=== PATIENT | male | born 2000 | race Caucasian/White ===

== ENCOUNTER 2023-12-26 17:20 | Emergency (ER) | payer SELFPAY ==
[~2023-12-26] VITALS: Ht 177.8 cm; Wt 78.0 kg
[2023-12-26 17:26] VITALS: TEMP 98.2; O2SAT 100
[2023-12-26 17:45] VITALS: BP 135/83; PULSE 74; RESP 18
[2023-12-26] MEDS ORDERED: MORPHINE SULFATE 10 MG/ML CPJ IM ONE (17:45)
[2023-12-26] MEDS ORDERED: HYDR-4001 MT ×2 (20:39→21:51)
[2023-12-26] MEDS ORDERED: IBUP-2029 MT (20:39)
== END 2023-12-26 20:58 | disposition home or self-care (01) ==
LOC: ER 17:20
DX: S82.51XA Displaced fracture of medial malleolus of right tibia, initial encounter for closed fracture (principal); X58.XXXA Exposure to other specified factors, initial encounter; Y93.89 Activity, other specified; Y92.89 Other specified places as the place of occurrence of the external cause; Y99.8 Other external cause status
CPT/HCPCS: 99285; 27788; 73590; 73600; 96372; J2270

== ENCOUNTER 2023-12-30 10:30 | Emergency (ER) | payer OTHER ==
[~2023-12-30] VITALS: Ht 177.8 cm; Wt 88.0 kg
[~2023-12-30 10:30] MED LIST: HYDR-4001 MT; IBUP-2029 MT
[2023-12-30 10:47] VITALS: BP 125/62; PULSE 74; RESP 16; TEMP 98.2; O2SAT 99
== END 2023-12-30 18:11 | disposition home or self-care (01) ==
LOC: ER 10:30
DX: S82.51XA Displaced fracture of medial malleolus of right tibia, initial encounter for closed fracture (principal); S82.831A Other fracture of upper and lower end of right fibula, initial encounter for closed fracture; X58.XXXA Exposure to other specified factors, initial encounter; Y93.89 Activity, other specified; Y92.89 Other specified places as the place of occurrence of the external cause; Y99.8 Other external cause status
CPT/HCPCS: 93971; 73590; 73610; 29515; 99284; Z7610 ×2